=== PATIENT | male | born 1960 ===

== ENCOUNTER 2019-06-02 10:18 | Outpatient (CLI) | payer BC ==
[2019-06-02 11:18] LABS: Basophils % (Auto) 0.5 % (0.0-1.8); Eosinophils % (Auto) 0.4 % (0.0-4.3); Hematocrit 46.3 % (30.3-42.9); Hemoglobin 15.5 gm/dl (10.1-14.3); Lymphocytes # (Auto) 1.2 K/mm3 (1.2-5.4); Lymphocytes % (Auto) 23.6 % (13.4-35.0); Mean Corpuscular HGB Conc 33 % (30-34); Mean Corpuscular Volume 92 fl (79-97); Monocytes # (Auto) 0.4 K/mm3 (0.0-0.8); Monocytes % (Auto) 8.3 % (0.0-7.3); Red Blood Count 5.04 M/mm3 (3.65-5.03); Red Cell Distribution Width 12.9 % (13.2-15.2)
[2019-06-02 11:26] LABS: Bilirubin,Urine NEG (Negative); Blood,Urine NEG (Negative); Color,Urine Yellow (Yellow); Mucus,Urine FEW /HPF; Protein,Urine <15 mg/dL mg/dL (Negative); Urobilinogen,Urine < 2.0 mg/dL (<2.0); WBC,Urine < 1.0 /HPF (0.0-6.0)
[2019-06-02 11:37] LABS: Albumin 4.5 g/dL (3.9-5); Calcium 9.4 mg/dL (8.4-10.2); Chol/HDL Ratio 3.13 %
[2019-06-02 12:52] LABS: Platelet Count 134 K/mm3 (140-440)
[2019-06-07 11:13] LABS: Vitamin D, 25-OH, D2 <4 ng/mL
== END 2019-06-02 10:19 | disposition home or self-care (01) ==
LOC: LAB 10:18 → EDSEX 10:18 → LAB 10:19
PROVIDERS: ATTEND Internal Medicine
DX: Z13.21 Encounter for screening for nutritional disorder (principal); Z13.1 Encounter for screening for diabetes mellitus; R33.9 Retention of urine, unspecified; E87.6 Hypokalemia; E26.09 Other primary hyperaldosteronism
CPT/HCPCS: 36415; 80053; 80061; 81001; 82306; 82607; 83036; 84153; 84443; 85025